=== PATIENT | male | born 1930 | race Caucasian/White ===

== ENCOUNTER → 2017-09-10 | Outpatient (CLI) | payer MEDICARE ==
[~2017-09-10] MED LIST: ARICEPT5 MG PO; ASPIRIN81 MG PO; DIGOXIN125 MCG PO; DIOVAN80 MG PO; DOXYCYCLINE HY100 MG PO; FISH OIL 1,0001 EAC2 PO; FUROSEMIDE40 MG PO; GABAPENTIN300 MG PO; GLIPIZIDE10 MG PO; MULTI-VITAMIN1 EACH PO; POTASSIUM CHLO10 ME1 PO; RAPAFLO4 MG PO; SIMVASTATIN10 MG PO; VERAPAMIL HCL80 MG PO; WARFARIN SODIU7.5 MG PO
--- NOTE | 2017-09-10 14:24 | Diagnostic Imaging Report ---
EXAMINATION: Head CT HISTORY: Status post fall, head trauma a couple of days ago, pain, forgetfulness COMPARISON: Head CT on 08/14/2015 and 12/10/2016 TECHNIQUE: Multidetector axial images were obtained without contrast from the foramen magnum to the vertex . The images were reconstructed using brain and bone algorithms. Thin section brain images were reformatted into coronal and sagittal planes. Intravenous contrast: None. Motion/streaking artifact limits the evaluation of the skull base and posterior cranial fossa. FINDINGS: Parenchyma: 1. Persistent mild chronic microvascular ischemic changes, within normal limits for age. 2. No mass or hemorrhage. No CT evidence of acute territorial vascular insult. Extra-axial spaces:No abnormal density. No extra-axial fluid collections Brain volume: Again noted generalized brain volume, within normal limits for age. Ventricles: No hydrocephalus or displacement. Arteries: No density suggestive of thrombus. Dural sinuses: No abnormal density. Extra-axial spaces: No abnormal density. Foramen magnum: No mass, Chiari malformation, or basilar invagination. Sella: No obvious mass. Paranasal/mastoid sinuses: Imaged portions unremarkable. Skull/Scalp: No lytic or blastic lesions. Right frontal scalp/soft tissue swelling/hematoma without underlying fracture.. IMPRESSION: 1. No acute post traumatic intracranial hemorrhage. 2. Right forehead soft tissue swelling/hematoma without underlying fractures. 3. Stable mild generalized brain volume loss. The findings were discussed with the attending physician's PA Grace Back at the time of the dictation. Signed by: Dr. Karolina Caceres M.D. on 09/10/2017 2:21 PM
== END ==
LOC: CT 13:07
PROVIDERS: ATTEND Family Medicine
DX: Z04.3 Encounter for examination and observation following other accident (principal); W01.0XXA Fall on same level from slipping, tripping and stumbling without subsequent striking against object, initial encounter
CPT/HCPCS: 70450

== ENCOUNTER 2017-10-18 15:45 | Emergency (ER) | payer MEDICARE ==
[~2017-10-18] VITALS: Ht 188 cm; Wt 80.3 kg
--- OUTSIDE RECORDS SUMMARY | 2017-10-18 15:49 | XMS REPORT | Clinical Summary ---
Author Author [facility] Address Unknown Phone Unavailable Care Team Providers Care Prison Librarian Name Role Phone Asked, Pcp PCP Unavailable Allergies Not on File Current Medications Not on file Active Problems Not on file Encounters Date Type Specialty Care Team Description 04/01/2017 Orders Only Radiation Oncology Radha Hopper PA-C Malignant neoplasm of prostate (Primary Dx) after 10/17/2016 Social History Tobacco Use Types Packs/Day Years Used Date Never Assessed Sex Assigned at Date Recorded Not on file Last Filed Vital Signs Not on file Plan of Treatment Health Maintenance Due Date Last Done Comments SHINGRIX VACCINE (#1) 1979 ZOSTER VACCINE 1989 PNEUMOCOCCAL 1994 POLYSACCHARIDE VACCINE AGE 65 AND OVER PNEUMOCOCCAL-13 1994 INFLUENZA VACCINE 12/25/2017 Results Not on fileafter 10/17/2016 Insurance Payer Benefit Subscriber ID Type Phone Address Plan / Group MEDICARE MEDICARE xxxxxxxxxx Medicare [place], [place] PART A AND B AARP AARP xxxxxxxxxxx [place] [address]
--- OUTSIDE RECORDS SUMMARY | 2017-10-18 15:49 | XMS REPORT ---
Author Author [facility] Address Unknown Phone Unavailable Care Team Providers Care Hot Baller Name Role Phone HEAVENLY SCOTT Unavailable Unavailable Problems This patient has no known problems. Allergies, Adverse Reactions, Alerts This patient has no known allergies or adverse reactions. Medications This patient has no known medications. Results Test Description Test Time Test Comments Text Results Atomic Results Result Comments CT BRAIN WO [place] [address] Patient Name: LUZ MCCALL MR #: [id number] : 1930 Age/Sex: 87/M Req # : [id number] Adm Physician: Ordered by: HEAVENLY SCOTT DO Report #: [id number] Location: CT Room/Bed: Procedure: [id number] CT/CT BRAIN WO Exam Date: 09/10/17 Exam Time: 1340 REPORT STATUS: Signed EXAMINATION: Head CT HISTORY: Status post fall, head trauma a couple of days ago, pain, forgetfulness COMPARISON: Head CT on 08/14/2015 and 12/10/2016 TECHNIQUE: Multidetector axial images were obtained without contrast from the foramen magnum to the vertex . The images were reconstructed using brain and bone algorithms. Thin section brain images were reformatted into coronal and sagittal planes. Intravenous contrast: None. Motion/streaking artifact limits the evaluation of the skull base and posterior cranial fossa. FINDINGS: Parenchyma: 1. Persistent mild chronic microvascular ischemic changes, within normal limits for age. 2. No mass or hemorrhage. No CT evidence of acute territorial vascular insult. Extra-axial spaces:No abnormal density. No extra-axial fluid collections Brain volume: Again noted generalized brain volume, within normal limits for age. Ventricles: No hydrocephalus or displacement. Arteries: No density suggestive of thrombus. Dural sinuses: No abnormal density. Extra-axial spaces : No abnormal density. Foramen magnum: No mass, Chiari malformation, or basilar invagination. Sella: No obvious mass. Paranasal/ mastoid sinuses: Imaged portions unremarkable. Skull/Scalp: No lytic or blastic lesions. Right frontal scalp/soft tissue swelling/hematoma without underlying fracture.. IMPRESSION: 1. No acute post traumatic intracranial hemorrhage. 2. Right forehead soft tissue swelling/hematoma without underlying fractures. 3. Stable mild generalized brain volume loss. The findings were discussed with the attending physician's PA Grace Back at the time of the dictation. Signed by: Dr. Larry Caceres M.D. on 09/10/2017 2:21 PM Dictated By: LARRY CACERES MD 1421 Transcribed By: EMILY on 09/10/17 1421 COPY TO: HEAVENLY SCOTT DO
[2017-10-18] MEDS ORDERED: SODIUM CHLORIDE FLUSH 10 ML SYR INJ PRN (16:15)
[2017-10-18] MEDS ORDERED: SODIUM CHLORIDE 0.9% 1000ML 500 ML IV SCH (16:15)
[2017-10-18 17:15] LABS: BASOPHILS % 0.3 % (0.0-1.0); EOSINOPHILS # (AUTO) 0.2 (0.0-0.4); EOSINOPHILS % 2.6 % (0.0-6.0); HEMATOCRIT 27.1 % (38.2-49.6); HEMOGLOBIN 8.6 g/dL (14.0-18.0); LYMPHOCYTES # (AUTO) 0.8 (1.0-3.2); LYMPHOCYTES % 12.6 % (18.0-39.1); MEAN CORPUSCULAR HEMOGLOBIN 26.3 pg (28-32); MEAN CORPUSCULAR HGB CONC 31.7 g/dL (31-35); MEAN CORPUSCULAR VOLUME 82.9 fL (81-99); MONOCYTES # (AUTO) 0.4 (0.2-0.8); NEUTROPHILS # (AUTO) 5.1 (2.1-6.9); NEUTROPHILS % 77.9 % (38.7-80.0); PLATELET COUNT 245 x10e3/uL (140-360); RED BLOOD COUNT 3.27 x10e6/uL (4.3-5.7)
[2017-10-18 17:25] LABS: INR 2.19; PROTHROMBIN TIME 22.9 seconds (11.9-14.5)
[2017-10-18 17:26] LABS: PARTIAL THROMBOPLASTIN TIME 41.5 seconds (23.8-35.5)
[2017-10-18 17:33] LABS: ALBUMIN 3.2 g/dL (3.5-5.0); ALBUMIN/GLOBULIN RATIO 0.8 (0.8-2.0); ANION GAP 15.6 mmol/L (8-16); CREATININE, SERUM 1.59 mg/dL (0.72-1.25); POTASSIUM 4.6 mmol/L (3.5-5.1)
[2017-10-18 17:39] LABS: DIGOXIN 0.72 ng/mL (0.8-2.0)
[2017-10-18] MEDS ORDERED: INSULIN REGULAR, HUMAN 100 UNIT/1 ML 3ML VIAL IV ONE ×2 (18:00→19:30)
[2017-10-18] MEDS ORDERED: SODIUM CHLORIDE 0.9% 1000ML 1,000 ML IV SCH (18:00)
[2017-10-18 18:24] LABS: CLARITY,URINE TURBID (CLEAR); COLOR,URINE YELLOW (YELLOW); KETONES,URINE NEGATIVE (NEGATIVE); LEUKOCYTE ESTERASE ,URINE 2+ (NEGATIVE); NITRITE,URINE NEGATIVE (NEGATIVE); PROTEIN,URINE DIPSTICK 2+ (NEGATIVE)
[2017-10-18 18:25] LABS: BILIRUBIN,URINE NEGATIVE (NEGATIVE); URINE UROBILINOGEN 0.2 mg/dL (0.2 - 1)
[2017-10-18 18:32] LABS: AMORPHOUS SEDIMENT,URINE FEW (FEW); BACTERIA,URINE MODERATE /HPF; WBC,URINE (MAN) 21-50 /HPF (0-5)
[2017-10-18] MEDS ORDERED: CEFTRIAXONE SOD 1 GM VIAL IM ONE (19:00)
[2017-10-18 21:21] VITALS: BP 145/62
== END 2017-10-18 22:32 | disposition home or self-care (01) ==
LOC: ER 15:45
DX: E11.65 Type 2 diabetes mellitus with hyperglycemia (principal); N30.90 Cystitis, unspecified without hematuria; E78.00 Pure hypercholesterolemia, unspecified; Z95.0 Presence of cardiac pacemaker
CPT/HCPCS: 36415; 80053; 80162; 81001; 82948; 83036; 85025; 85610; 85730; 87086; 87186; 93005; 99284; J0696; J7030

== ENCOUNTER 2017-10-21 12:34 | Emergency (ER) | payer MEDICARE ==
[~2017-10-21] VITALS: Ht 188 cm; Wt 80.3 kg
--- OUTSIDE RECORDS SUMMARY | 2017-10-21 12:38 | XMS REPORT | Clinical Summary ---
Author Author [facility] Address Unknown Phone Unavailable Care Team Providers Care Waiter/Waitress Head Name Role Phone Asked, Pcp PCP Unavailable Allergies Not on File Current Medications Not on file Active Problems Not on file Encounters Date Type Specialty Care Team Description 04/01/2017 Orders Only Radiation Oncology Radha Hopper PA-C Malignant neoplasm of prostate (Primary Dx) after 10/20/2016 Social History Tobacco Use Types Packs/Day Years Used Date Never Assessed Sex Assigned at Date Recorded Not on file Last Filed Vital Signs Not on file Plan of Treatment Health Maintenance Due Date Last Done Comments SHINGRIX VACCINE (#1) 1979 ZOSTER VACCINE 1989 PNEUMOCOCCAL 1994 POLYSACCHARIDE VACCINE AGE 65 AND OVER PNEUMOCOCCAL-13 1994 INFLUENZA VACCINE 12/25/2017 Results Not on fileafter 10/20/2016 Insurance Payer Benefit Subscriber ID Type Phone Address Plan / Group MEDICARE MEDICARE xxxxxxxxxx Medicare [place], [place] PART A AND B AARP AARP xxxxxxxxxxx [place] [address]
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
[2017-10-21] MEDS ORDERED: MORPHINE SULFATE 2 MG/ML SYR IV STA (14:04)
[2017-10-21] MEDS ORDERED: SODIUM CHLORIDE 0.9% 1000ML 1,000 ML IV STA ×2 (14:04→16:41)
[2017-10-21] MEDS ORDERED: ASPIRIN 81 MG CHEW TAB PO ONE (14:15)
[2017-10-21] MEDS ORDERED: ONDANSETRON HCL 4 MG ORAL DISINTEGRATING TAB PO ONE (14:15)
[2017-10-21 15:56] LABS: BASOPHILS % 0.3 % (0.0-1.0); EOSINOPHILS # (AUTO) 0.2 (0.0-0.4); EOSINOPHILS % 3.1 % (0.0-6.0); HEMATOCRIT 27.8 % (38.2-49.6); LYMPHOCYTES # (AUTO) 0.9 (1.0-3.2); LYMPHOCYTES % 11.8 % (18.0-39.1); MEAN CORPUSCULAR HEMOGLOBIN 26.7 pg (28-32); MEAN CORPUSCULAR HGB CONC 32.4 g/dL (31-35); MEAN CORPUSCULAR VOLUME 82.5 fL (81-99); MONOCYTES # (AUTO) 0.4 (0.2-0.8); MONOCYTES % 4.9 % (4.4-11.3); NEUTROPHILS # (AUTO) 5.7 (2.1-6.9); NEUTROPHILS % 79.5 % (38.7-80.0); PLATELET COUNT 266 x10e3/uL (140-360); RED BLOOD COUNT 3.37 x10e6/uL (4.3-5.7); RED CELL DISTRIBUTION WIDTH 14.4 % (11.7-14.4)
[2017-10-21 16:05] LABS: INR 2.03; PROTHROMBIN TIME 21.6 seconds (11.9-14.5)
[2017-10-21 16:06] LABS: PARTIAL THROMBOPLASTIN TIME 37.8 seconds (23.8-35.5)
[2017-10-21 16:13] LABS: ALBUMIN 3.2 g/dL (3.5-5.0); ALBUMIN/GLOBULIN RATIO 0.7 (0.8-2.0); ANION GAP 14.7 mmol/L (8-16); CALCIUM 10.2 mg/dL (8.4-10.2); CREATININE, SERUM 1.31 mg/dL (0.72-1.25); POTASSIUM 4.7 mmol/L (3.5-5.1)
[2017-10-21 16:14] LABS: CLARITY,URINE CLOUDY (CLEAR); COLOR,URINE YELLOW (YELLOW); KETONES,URINE NEGATIVE (NEGATIVE); LEUKOCYTE ESTERASE ,URINE 2+ (NEGATIVE); NITRITE,URINE NEGATIVE (NEGATIVE); PROTEIN,URINE DIPSTICK NEGATIVE (NEGATIVE)
[2017-10-21 16:15] LABS: BILIRUBIN,URINE NEGATIVE (NEGATIVE); URINE UROBILINOGEN 0.2 mg/dL (0.2 - 1)
[2017-10-21 16:20] LABS: CREATINE KINASE MB 2.4 ng/mL (0-5.0)
[2017-10-21 16:27] LABS: WBC,URINE (MAN) >50 /HPF (0-5)
[2017-10-21 16:28] LABS: BACTERIA,URINE FEW /HPF; MUCUS,URINE RARE (RARE)
[2017-10-21] MEDS ORDERED: INSULIN LISPRO 100 UNIT/1 ML 3ML VIAL SQ STA (16:41)
[2017-10-21] MEDS ORDERED: CEFTRIAXONE SOD 1 GM VIAL IV ONE (16:45)
[2017-10-21 19:31] VITALS: BP 123/75
== END 2017-10-21 19:43 | disposition home or self-care (01) ==
LOC: ER 12:34
DX: E11.65 Type 2 diabetes mellitus with hyperglycemia (principal); N30.90 Cystitis, unspecified without hematuria; E78.5 Hyperlipidemia, unspecified; E11.42 Type 2 diabetes mellitus with diabetic polyneuropathy; Z79.84 Long term (current) use of oral hypoglycemic drugs; Z95.0 Presence of cardiac pacemaker; Z79.01 Long term (current) use of anticoagulants; Z79.82 Long term (current) use of aspirin
CPT/HCPCS: 93005; 99284; J0696; J7030

== ENCOUNTER 2018-09-20 16:40 | Inpatient (IN) | payer MEDICARE ==
[~2018-09-20] VITALS: Ht 188 cm; Wt 79.0 kg
--- OUTSIDE RECORDS SUMMARY | 2018-09-20 16:44 | XMS REPORT | Clinical Summary ---
Author Author [facility] Address Unknown Phone Unavailable Care Team Providers Care Labeler Name Role Phone Asked, No Pcp PCP Unavailable Allergies Not on File Medications Not on file Active Problems Not on file Social History Date Tobacco Use Types Packs/Day Years Used Never Assessed Sex Assigned at Date Recorded Not on file Industry Job Start Date Occupation Not on file Not on file Not on file Travel End Travel History Travel Start No recent travel history available. Last Filed Vital Signs Not on file Plan of Treatment Health Maintenance Due Date Last Done Comments SHINGLES VACCINES (#1) 1979 65+ PNEUMOCOCCAL VACCINE 1994 (1 of 2 - PCV13) PNEUMOCOCCAL 1994 POLYSACCHARIDE VACCINE AGE 65 AND OVER INFLUENZA VACCINE 12/25/2018 Results Not on fileafter 09/19/2017 Insurance Payer Benefit Subscriber ID Type Phone Address Plan / Group MEDICARE MEDICARE xxxxxxxxxx Medicare [place], [place] PART A AND B AARP AARP xxxxxxxxxxx Commercial SUPPLEMENT (Home) [place] [address] Advance Directives Patient has advance care planning documents on file. For more information, crispin onofre contact: Brain Newman [address] [place] [address]
--- NOTE | 2018-09-20 17:49 | Diagnostic Imaging Report ---
ADDENDUM #1 Agree with preliminary report. Signed by: DR Earnest Franks M.D. on 09/20/2018 6:41 PM ORIGINAL REPORT Exam: Noncontrast head and cervical spine CT History: 88-year-old male, status post fall, altered mental status Comparison studies: Head CT dated 09/10/2017 Technique: Axial images were obtained from the brain and cervical spine. Coronal and sagittal images reconstructed from the axial data. Dose modulation, iterative reconstruction, and/or weight based adjustment of the mA/kV was utilized to reduce the radiation dose to as low as reasonably achievable. Intravenous contrast: None Findings: Head CT: Scalp/skull: There is a small area of scalp swelling over the left frontal scalp.. No fractures, blastic or lytic lesions. Brain sulci: Mildly prominent. Ventricles: Mildly prominent. No hydrocephalus. Extra-axial spaces: No masses. No fluid collections. Parenchyma: Mild scattered white matter hypodensities which are nonspecific, however likely represents sequela microvascular ischemic angiopathy. No masses, hemorrhage, acute or chronic cortical vascular insults. Sellar/suprasellar region: No abnormalities. Craniocervical junction: Patent foramen magnum. No Chiari one malformation. Cervical spine CT: Airway: Patent. Fractures: None. Soft tissues: No gross abnormalities. Atlantoaxial articulation: Intact. Alignment: Normal lordosis. No scoliosis. Cervicomedullary junction: No abnormalities. Patent foramen magnum. Vertebrae: No infection or neoplasm. 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 There is severe right-sided C3-4 foraminal stenosis due to uncovertebral arthrosis. There are multilevel symmetric disc bulges throughout the cervical spine the results in mild central canal stenosis at C4-5, C5-6, and C6-7. There are no aggressive osseous lesions. Incidental findings: Visualized lung apices are clear.. IMPRESSION: Head CT: Small area of scalp swelling over the left frontal scalp. No acute intracranial abnormalities. Chronic findings: 1. Mild white matter microvascular ischemic changes. 2. Mild generalized volume loss. Cervical spine CT: 1. No abnormalities. 2. Cannot adequately evaluate for ligament, spinal cord and or vascular abnormalities. Signed by: Tru Dean MD on 09/20/2018 5:46 PM
[2018-09-20] MEDS ORDERED: HYDROMORPHONE 2MG/ML 2 MG/ML ML IV ONE (18:30)
--- NOTE | 2018-09-20 18:32 | Diagnostic Imaging Report ---
BILATERAL HIPS X-RAY - 6 VIEWS HISTORY: ^s/p fall ^Y COMPARISON: None available. FINDINGS: Bones: Suboptimal evaluation of the proximal right femur due to unable to obtain films in external rotation. There appears to be an acute mildly displaced fracture of the left femoral neck. Additional lucent line in the inferior aspect of the left femoral head may represent an additional fracture. Right hip is suboptimally evaluated but no acute fractures are visualized. Joints: Moderate degenerative changes of both sacroiliac and acetabular femoral joints. Soft tissues: The soft tissues appear unremarkable. IMPRESSION: Highly suspected acute left femoral neck fracture. Additional lucent line in the inferior aspect of the left femoral head may represent an additional fracture. Right femur no well evaluated but no displaced fracture on limited evaluation. Recommend repeat if clinical concern. Signed by: Dr. Amna Easley M.D. on 09/20/2018 6:29 PM
--- NOTE | 2018-09-20 18:43 | Diagnostic Imaging Report ---
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 Tortuous thoracic aorta. 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 LUNGS: Lungs are well inflated. Bibasilar atelectasis. Central pulmonary vascular congestion. PLEURA: No pleural effusion or pneumothorax. HEART AND MEDIASTINUM: Mild enlargement of the cardiac silhouette. BONES AND SOFT TISSUES: No acute osseous lesion. Soft tissues are unremarkable. UPPER ABDOMEN: No free air under the diaphragm. IMPRESSION: Mild enlargement of the cardiac silhouette with associated central pulmonary vascular congestion. Metallic device which appears to represent a razor of indeterminate location in the right suprahilar region. Currently with physical exam, otherwise, recommend lateral view for better localization. Signed by: Dr. Amna Easley M.D. on 09/20/2018 6:39 PM
[2018-09-20 19:30] LABS: BASOPHILS % 0.2 % (0.0-1.0); EOSINOPHILS # (AUTO) 0.1 (0.0-0.4); EOSINOPHILS % 2.3 % (0.0-6.0); HEMATOCRIT 30.6 % (38.2-49.6); HEMOGLOBIN 10.3 g/dL (14.0-18.0); LYMPHOCYTES # (AUTO) 0.8 (1.0-3.2); LYMPHOCYTES % 13.4 % (18.0-39.1); MEAN CORPUSCULAR HEMOGLOBIN 29.9 pg (28-32); MEAN CORPUSCULAR HGB CONC 33.7 g/dL (31-35); MEAN CORPUSCULAR VOLUME 88.7 fL (81-99); MONOCYTES # (AUTO) 0.3 (0.2-0.8); MONOCYTES % 5.5 % (4.4-11.3); NEUTROPHILS # (AUTO) 4.8 (2.1-6.9); NEUTROPHILS % 77.5 % (38.7-80.0); PLATELET COUNT 163 x10e3/uL (140-360); RED BLOOD COUNT 3.45 x10e6/uL (4.3-5.7); RED CELL DISTRIBUTION WIDTH 13.8 % (11.7-14.4)
[2018-09-20 19:32] LABS: BILIRUBIN,URINE NEGATIVE (NEGATIVE); CLARITY,URINE CLEAR (CLEAR); COLOR,URINE YELLOW (YELLOW); KETONES,URINE NEGATIVE (NEGATIVE); LEUKOCYTE ESTERASE ,URINE NEGATIVE (NEGATIVE); NITRITE,URINE NEGATIVE (NEGATIVE); PROTEIN,URINE DIPSTICK NEGATIVE (NEGATIVE); URINE UROBILINOGEN 0.2 mg/dL (0.2 - 1)
[2018-09-20 19:43] LABS: BACTERIA,URINE FEW /HPF; EPITHELIAL CELLS,URINE FEW /LPF; MUCUS,URINE FEW (RARE); WBC,URINE (MAN) 0-5 /HPF (0-5)
[2018-09-20 19:46] LABS: ALANINE AMINOTRANSFERASE 21 IU/L (0-55); ALBUMIN 3.1 g/dL (3.5-5.0); ALBUMIN/GLOBULIN RATIO 0.9 (0.8-2.0); ALKALINE PHOSPHATASE 59 IU/L (40-150); ANION GAP 13.9 mmol/L (8-16); BLOOD UREA NITROGEN 23 mg/dL (7-26); BUN/CREATININE RATIO 22 (6-25); CALCIUM 9.2 mg/dL (8.4-10.2); CARBON DIOXIDE 27 mmol/L (22-29); CHLORIDE 105 mmol/L (98-107); CREATININE, SERUM 1.06 mg/dL (0.72-1.25); EST GLOMERULAR FILTRATION RATE > 60 ML/MIN (60-); GLUCOSE 157 mg/dL (74-118); INR 1.76; POTASSIUM 3.9 mmol/L (3.5-5.1); PROTHROMBIN TIME 21.2 seconds (11.9-14.5); SODIUM 142 mmol/L (136-145)
[2018-09-20 19:47] LABS: PARTIAL THROMBOPLASTIN TIME 37.1 seconds (23.8-35.5)
[2018-09-20 20:00] VITALS: BP 157/71
[2018-09-20] MEDS ORDERED: HYDROMORPHONE 1MG/1ML INJ IV PRN (20:00)
[2018-09-20] MEDS ORDERED: DEXTROSE 50% SYRINGE 50 ML IV PRN (20:00)
--- OUTSIDE RECORDS SUMMARY | 2018-09-20 20:04 | XMS REPORT | Clinical Summary ---
Author Author [facility] Address Unknown Phone Unavailable Care Team Providers Care Organic Search Lead Name Role Phone Asked, No Pcp PCP [...] Plan / Group MEDICARE MEDICARE xxxxxxxxxx Medicare [place], [place] PART A AND B AARP AARP xxxxxxxxxxx Commercial SUPPLEMENT (Home) [place] [address] Advance Directives Patient has advance care planning documents on file. For more information, crispin onofre contact: Brain Newman [address] [place] [address]
[2018-09-20] MEDS: HYDROMORPHONE 2MG/ML 2 MG/ML ML IV PRN (22:10)
[2018-09-20] MEDS: INSULIN REGULAR, HUMAN 100 UNIT/1 ML 3ML VIAL SQ SCH (22:10)
[2018-09-20] MEDS: ONDANSETRON HCL INJ 2MG/ML 2ML 2 MG/ML VIAL IV PRN (22:10)
[2018-09-20 22:30] VITALS: BP 157/71
--- NOTE | 2018-09-20 22:43 | NUR ---
PATIENT RECEIVED FROM THE EMERGENCY DEPARTMENT PER STRETCHER AT 2122. HE'S ALERT AND ORIENTED X3, NO RESPIRATORY DISTRESS OBSERVED. MULTIPLE BRUISES TO THE ARMS, SMALL SKIN TEAR OBSERVED TO THE LEFT ELBOW. 3+ PITTING EDEMA TO THE LEGS AND ANKLES, PATIENT C/O PAIN TO THE LEFT LEG WITH PAIN SCORE #8. MEDICATED WITH DILAUDID AND ZOFRAN ORDERED. LOPEZ'S TRACTION APPLIED TO THE LEFT LEG ONCE PATIENT VOICED RELIEF OF PAIN TO THE LEFT LEG. CALL LIGHT WITHIN EASY REACH, BED ALARM ON.
[2018-09-21] VITALS (7 sets, daily range): BP systolic 142–183; BP diastolic 72–86
--- NOTE | 2018-09-21 02:01 | NUR ---
PATIENT IS ASLEEP, HE'S EASY TO AROUSE. OXYGEN SATURATION ON ROOM AIR 989-90%, OXYGEN AT 2L/NC APPLIED WITH SATURATION NOW 96%HE DENIES PAIN, BED ALARM ON, CALL LIGHT WITHIN EASY REACH.
[2018-09-21] MEDS: HYDROMORPHONE 2MG/ML 2 MG/ML ML IV PRN ×2 (05:19→12:01)
[2018-09-21] MEDS: ONDANSETRON HCL INJ 2MG/ML 2ML 2 MG/ML VIAL IV PRN (05:19)
--- NOTE | 2018-09-21 05:20 | NUR ---
PATIENT C/O PAIN TO THE LEFT LEG WITH PAIN SCORE #8, MEDICATED WITH DILAUDID AND ZOFRAN ORDERED. NO RESPIRATORY DISTRESS OBSERVED, BED ALARM ON AND CALL LIGHT WITHIN EASY REACH.
[2018-09-21 06:16] LABS: BASOPHILS % 0.2 % (0.0-1.0); EOSINOPHILS # (AUTO) 0.2 (0.0-0.4); EOSINOPHILS % 2.3 % (0.0-6.0); HEMATOCRIT 29.7 % (38.2-49.6); HEMOGLOBIN 9.5 g/dL (14.0-18.0); LYMPHOCYTES # (AUTO) 0.6 (1.0-3.2); LYMPHOCYTES % 6.3 % (18.0-39.1); MEAN CORPUSCULAR HEMOGLOBIN 28.4 pg (28-32); MEAN CORPUSCULAR VOLUME 88.9 fL (81-99); MONOCYTES # (AUTO) 0.4 (0.2-0.8); MONOCYTES % 4.5 % (4.4-11.3); NEUTROPHILS % 86.2 % (38.7-80.0); PLATELET COUNT 128 x10e3/uL (140-360); RED BLOOD COUNT 3.34 x10e6/uL (4.3-5.7); RED CELL DISTRIBUTION WIDTH 13.5 % (11.7-14.4)
[2018-09-21 06:39] LABS: ALANINE AMINOTRANSFERASE 87 IU/L (0-55); ALBUMIN 2.9 g/dL (3.5-5.0); ALBUMIN/GLOBULIN RATIO 0.9 (0.8-2.0); ALKALINE PHOSPHATASE 81 IU/L (40-150); BLOOD UREA NITROGEN 19 mg/dL (7-26); BUN/CREATININE RATIO 21 (6-25); CARBON DIOXIDE 29 mmol/L (22-29); CHLORIDE 105 mmol/L (98-107); CREATININE, SERUM 0.89 mg/dL (0.72-1.25); EST GLOMERULAR FILTRATION RATE > 60 ML/MIN (60-); GLUCOSE 138 mg/dL (74-118); SODIUM 142 mmol/L (136-145)
[2018-09-21] MEDS: INSULIN REGULAR, HUMAN 100 UNIT/1 ML 3ML VIAL SQ SCH ×4 (07:30→21:00)
[2018-09-21] MEDS ORDERED: COUMADIN3 MG PO (10:10)
[2018-09-21] MEDS ORDERED: GLIPIZIDE5 MG PO (10:16)
[2018-09-21] MEDS ORDERED: FLOMAX0.4 MG PO (10:17)
[2018-09-21] MEDS ORDERED: IRON160 M1 PO (10:18)
[2018-09-21] MEDS ORDERED: [UNRECOGNIZED DRUG - OTHER] SC (10:19)
--- NOTE | 2018-09-21 11:02 | NUR ---
Call to Dr. Stephens's service for cardiac clearance consult and waiting for call back.
[2018-09-21] MEDS ORDERED: ONDANSETRON HCL 4 MG ORAL DISINTEGRATING TAB PO PRN (11:45)
--- NOTE | 2018-09-21 12:46 | NUR ---
Dr. Stephens not available to see patient and consult for cardiac clearance to Dr. Tanner and he is seeing patient at this time
--- NOTE | 2018-09-21 13:09 | History and Physical ---
CHIEF COMPLAINT: Hip pain. HISTORY OF PRESENT ILLNESS: This is an 88-year-old white man, who suffered a mechanical fall on Thursday, September 20, 2018, that resulted in left femoral neck fracture. The patient states he cannot quite remember falling, but he does not think he lost consciousness. This gentleman also suffered fyhd-dm-imwpejaq vascular dementia. Family states he has been very unsteady on his feet for the last year. He usually ambulates with a cane or walker. In the emergency room, the patient had chest x-ray performed, which did reveal bibasilar atelectasis as well as enlarged cardiac silhouette with mild central pulmonary vascular congestion. The patient's blood work on admission was unremarkable except today his AST and ALT are elevated at 108 and 87 respectively. A 12-lead EKG performed in the emergency room revealed paced rhythm. REVIEW OF SYSTEMS: GENERAL: Weight is stable according to members. His dementia has worsened over the last year. He is also very unsteady when he ambulates. No fever or chills. HEENT: No headaches. No vision changes. CARDIOVASCULAR/RESPIRATORY: No complaints of any chest pain or shortness of breath. No complaints of palpitations or lightheadedness. GI: No nausea, vomiting, diarrhea, or constipation. : He does have benign prostatic hypertrophy. Denies any UTIs. NEUROMUSCULAR: Does complain of left hip discomfort. He is very unsteady when he ambulates as previous stated. PAST MEDICAL HISTORY: 1. Paroxysmal atrial fibrillation. 2. Systolic congestive heart failure. 3. Hypertensive heart disease. 4. Type 2 diabetes mellitus. 5. Hyperlipidemia. 6. Yjcp-wk-hckavuix vascular dementia. 7. Benign prostatic hypertrophy. PAST SURGICAL HISTORY: 1. Permanent pacemaker placement. 2. Cholecystectomy. 3. Hernia repair. 4. Hemorrhoidectomy. 5. Lumbar spine surgery. FAMILY HISTORY: Noncontributory. SOCIAL HISTORY: He is , lives with his . No history of tobacco or alcohol use. He has adult children, they are very much involved in his health care needs. ALLERGIES: NO KNOWN DRUG ALLERGIES. MEDICATIONS: 1. Aspirin 81 mg daily. 2. Digoxin 125 mcg daily. 3. Donepezil 10 mg at bedtime. 4. Ferrous sulfate 160 mg daily. 5. Furosemide 40 mg b.i.d. 6. Gabapentin 10 mg b.i.d. 7. Glipizide 10 mg in the morning and 5 mg at night. 8. Multivitamin daily. 9. Essex-3 fish oil 4000 mg daily. 10. Potassium chloride 10 mEq daily. 11. Simvastatin 10 mg at bedtime. 12. Tamsulosin 0.4 daily. 13. Valsartan 40 mg daily. 14. Verapamil 80 mg t.i.d. 15. Warfarin 7.5 mg alternating with 3.25 mg every other day. 16. Toujeo 10 units subcutaneous daily. PHYSICAL EXAMINATION: GENERAL: He is awake and alert. He does get confused easily. His adult children and are at bedside, who provided all the history. He does not appear to be in distress. VITAL SIGNS: Height 6 feet 2 inches, weight 138 pounds, and BMI is 22. Blood pressure is 140/80, pulse 84, respirations 16, temperature 97.5, and oxygen saturation 99% on room air. SKIN: Warm and dry. Slight pallor. No jaundice or diaphoresis. HEENT: Anicteric sclerae with moist mucous membranes. NECK: Supple. CARDIOVASCULAR: Distant heart sounds. Regular rate and rhythm with an S3 gallop. LUNGS: No rales. No rhonchi or wheezes. ABDOMEN: Benign. EXTREMITIES: No edema or deformity. His left lower extremity is in Crisostomo's traction. NEUROLOGIC: Intact. No gross focal deficits appreciated. DIAGNOSES: 1. Left femoral neck fracture secondary to mechanical fall. 2. Oldb-tk-wdyyinms dementia. 3. Chronic systolic congestive heart failure. 4. Hypertensive heart disease. 5. Elevated hepatic transaminases. 6. Paroxysmal atrial fibrillation. PLAN: 1. We will hold warfarin and aspirin therapy. 2. We will check prothrombin time and INR level daily. 3. We will check creatine kinase level to assess for rhabdomyolysis. 4. Check B-type natriuretic peptide level to assess for intravascular volume overload. 5. Order 2D echocardiogram to assess patient's left ventricular ejection fraction. 6. Consult Cardiology. 7. Blood glucose and blood pressure monitoring and control. 8. Informed the family that sulfonylureas can cause severe symptomatic hypoglycemia, but family insists that this medication has controlled his glucose levels. 9. Gentle adequate pain control. 10. We will hold simvastatin since he has elevated hepatic transaminases. I spent 50 minutes in the care of patient. MD TRENTON Garcia/SHIVA /[id number]
--- NOTE | 2018-09-21 13:18 | NUR ---
Patient alert and responsive, cleared by cardiac for surgery, being seen by ortho at this time and will monitor
[2018-09-21 13:44] LABS: INR 1.52; PROTHROMBIN TIME 18.9 seconds (11.9-14.5)
--- NOTE | 2018-09-21 14:00 | NUR ---
Elevated BP notes and r/t pain as rechecked and BP 160/78
[2018-09-21] MEDS: VERAPAMIL HCL 80 MG TAB PO SCH ×2 (16:02→22:18)
[2018-09-21] MEDS: FUROSEMIDE 40 MG TAB PO SCH (17:03)
[2018-09-21] MEDS: GABAPENTIN 300 MG CAP PO SCH (17:03)
--- NOTE | 2018-09-21 19:30 | Consultation ---
DATE OF CONSULTATION: 09/21/2018 Cardiovascular consultation ADDITIONAL ATTENDING PHYSICIAN: Norman Hammer MD. Thank you so much for asking us to see this nice man again in consultation. Mr. Valdovinos is a pleasant, elderly, demented 88-year-old man, who was admitted through the emergency room on the with a complaint of fell down and fractured his hip. HISTORY OF PRESENT ILLNESS: Evidently, the patient was at home with his . Apparently, he got up from having a cup of coffee with his , walking to the bathroom and fell down and fractured his left hip. History of present illness is not further available as the patient is both demented and having been given narcotics for pain. PAST MEDICAL HISTORY: Long and complex with chronic atrial fibrillation, ventricular pacemaker, sleep apnea, history of hypertension, history of prostate cancer and skin cancer. He also apparently had pericarditis in the past, West Nile virus. MEDICATIONS: His home medical regimen recently included furosemide 40 mg twice a day, gabapentin 300 mg twice a day, potassium 10 mEq daily, glipizide 10 mg twice a day, aspirin 81 mg daily, multivitamin, fish oil, digoxin 0.125 mg every other day, donepezil 10 mg once a day, tamsulosin 0.4 mg daily, iron tablet, verapamil HCL 80 mg 3 times a day, warfarin 7.5 mg tablet one tablet on Saturday, Saturday, Saturday, 1.5 tablets on Saturday, Saturday, and Saturday, 1 tablet on , although the family tells me his INR was recently elevated and withheld warfarin for some days. Also, takes Toujeo SoloStar 10 units daily, losartan 25 mg daily. Recent echocardiogram showed gior-yr-rxfhvrph mitral regurgitation. Recent echocardiogram performed on July 11, 2018, showed an EF of 40-45%, apical septal hypokinesis, mild mitral regurgitation. Aortic root 3.9 cm, right ventricular systolic pressure estimated 52 mmHg. X-ray of the hip shows a left femoral fracture. ASSESSMENT: 1. Femoral fracture. 2. Chronic atrial fibrillation. 3. Pacemaker function intact. 4. Anemia. 5. Dementia. Apparently, anemia has been followed by Dr. Tate withholding warfarin. Cardiovascular status stable for surgery. Thank you for asking me to see him in consultation. MD STANISLAV Pérez/SHIVA /[id number] cc: DO Wilian No MD Edward B Roberts, MD
--- NOTE | 2018-09-21 20:20 | NUR ---
OLPEZ'S TRACTION INTACT TO THE LEFT LEG, SKIN ASSESSED AND NO PROBLEMS OBSERVED. PATIENT REPOSITION IN BED FOR COMFORT, HE'S MOSTLY ASLEEP BUT EASY TO AROUSE. CALL LIGHT IN EASY REACH, HIS IS AT THE BEDSIDE.
[2018-09-21] MEDS: DONEPEZIL HCL 5 MG TAB PO SCH (22:17)
[2018-09-21] MEDS: GLIPIZIDE 5 MG TAB PO SCH (22:18)
--- NOTE | 2018-09-21 23:38 | NUR ---
PATIENT IS MOSTLY ASLEEP, HE'S EASY TO AROUSE. HE DENIES PAIN TO THE LEFT LEG, DIABETIC SNACK GIVEN.
[2018-09-22] VITALS (7 sets, daily range): BP systolic 126–176; BP diastolic 68–84
[2018-09-22] MEDS: HYDROMORPHONE 2MG/ML 2 MG/ML ML IV PRN ×4 (04:05→21:37)
--- NOTE | 2018-09-22 04:05 | NUR ---
PATIENT REPOSITION IN BED, HE C/O SEVERE PAIN TO THE LEFT LEG. MEDICATED WITH DILAUDID ORDERED, BED ALARM ON AND CALL LIGHT WITHIN EASY REACH.
[2018-09-22 06:32] LABS: BASOPHILS % 0.3 % (0.0-1.0); EOSINOPHILS # (AUTO) 0.3 (0.0-0.4); EOSINOPHILS % 3.8 % (0.0-6.0); HEMOGLOBIN 10.4 g/dL (14.0-18.0); LYMPHOCYTES # (AUTO) 0.7 (1.0-3.2); LYMPHOCYTES % 8.4 % (18.0-39.1); MEAN CORPUSCULAR HEMOGLOBIN 28.8 pg (28-32); MEAN CORPUSCULAR HGB CONC 32.5 g/dL (31-35); MEAN CORPUSCULAR VOLUME 88.6 fL (81-99); MONOCYTES # (AUTO) 0.6 (0.2-0.8); MONOCYTES % 6.9 % (4.4-11.3); NEUTROPHILS # (AUTO) 7.1 (2.1-6.9); NEUTROPHILS % 80.3 % (38.7-80.0); PLATELET COUNT 140 x10e3/uL (140-360); RED BLOOD COUNT 3.61 x10e6/uL (4.3-5.7); RED CELL DISTRIBUTION WIDTH 13.6 % (11.7-14.4)
[2018-09-22 06:47] LABS: INR 1.41; PROTHROMBIN TIME 17.8 seconds (11.9-14.5)
[2018-09-22 07:06] LABS: ALANINE AMINOTRANSFERASE 65 IU/L (0-55); ALBUMIN 2.9 g/dL (3.5-5.0); ALBUMIN/GLOBULIN RATIO 0.8 (0.8-2.0); ALKALINE PHOSPHATASE 77 IU/L (40-150); ANION GAP 10.8 mmol/L (8-16); BLOOD UREA NITROGEN 16 mg/dL (7-26); BUN/CREATININE RATIO 19 (6-25); CALCIUM 9.5 mg/dL (8.4-10.2); CARBON DIOXIDE 32 mmol/L (22-29); CHLORIDE 102 mmol/L (98-107); CREATININE, SERUM 0.84 mg/dL (0.72-1.25); EST GLOMERULAR FILTRATION RATE > 60 ML/MIN (60-); GLUCOSE 141 mg/dL (74-118); POTASSIUM 3.8 mmol/L (3.5-5.1); SODIUM 141 mmol/L (136-145)
[2018-09-22] MEDS: INSULIN REGULAR, HUMAN 100 UNIT/1 ML 3ML VIAL SQ SCH ×4 (07:30→21:00)
[2018-09-22] MEDS ORDERED: ASPIRIN 81 MG CHEW TAB PO SCH (09:00)
[2018-09-22] MEDS ORDERED: VALSARTAN 80 MG TAB PO SCH (09:00)
[2018-09-22] MEDS: TOUJEO SC SCH (09:00)
[2018-09-22] MEDS: GABAPENTIN 300 MG CAP PO SCH ×2 (09:15→17:51)
[2018-09-22] MEDS: GLIPIZIDE 5 MG TAB PO SCH ×2 (09:15→21:37)
[2018-09-22] MEDS: FERROUS SULFATE 325 MG TAB PO SCH (09:15)
[2018-09-22] MEDS: DIGOXIN 0.125 MG TAB PO SCH (09:15)
[2018-09-22] MEDS: FUROSEMIDE 40 MG TAB PO SCH ×2 (09:15→17:51)
[2018-09-22] MEDS: LOSARTAN POTASSIUM 25 MG TAB PO SCH (09:15)
[2018-09-22] MEDS: VERAPAMIL HCL 80 MG TAB PO SCH ×3 (09:15→21:37)
[2018-09-22] MEDS: POTASSIUM CHLORIDE 10MEQ EA PO SCH (09:15)
[2018-09-22] MEDS: TAMSULOSIN HCL 0.4 MG CAP PO SCH (09:15)
--- NOTE | 2018-09-22 12:54 | NUR ---
CASE MANAGEMENT ASSESSMENT Senior Developer to bedside to discuss plan of care with patient/family. CM/SW role and care transitions discussed. Anticipated discharge plan discussed along with duration of care. CM/SW discussed patients right to make decisions in care. CM/SW work hours given. Spoke with pt's daughter Emelina at bedside. Patient lives: with Sri Admit/Transfer: thru ED Hospital/ER visits since last admit: 0 POA/Emergency contact: 1. Sri Valdovinos [phone], 2. daughter Emelina Rehman [phone] Current/Previous Home Health: had home health previously, but none currently. daughter cannot remember the name of the company PCP/Follow-up Care: Dr. Amaya Current/Previous DME: cane, rollator Medications (referring to index hospitalization or the first time you were in the hospital) a. Were changes made in your medications when you were in the hospital on [date of index hospitalization]? n/a b. Did you understand the changes? n/a c. Were you able to obtain your new medications right away? n/a d. Were you able to take your medications like the doctor wanted you to? n/a e. Did the hospital give you an accurate, easy to understand list of medications when you left? n/a Scale of 1-10 how comfortable does patient feel with disease management in outpatient settin Other Services: none Employment Status: retired Areas of Concerns: fall, weakness, dementia Referral Needs: inpatient rehab vs snf after surgery Education Needs: safety, post op instructions after pt has surgery IMM/LOZA given and signed (if applicable): none at this time Goal for discharge: snf vs inpatient rehab. daughter states that she has been trying to get her parents to come live with her, but they have resisted. She stated it may be close to time to put her dad in extermination supervisor care. She would like for him to go to rehab on discharge. CM provided pt's daughter with Senior Resource Guide and pointed out different facilities. She will check some facilities out and let CM know once they have a choice. CM/SW left business card at the bedside with contact information. Name and number was also written on the patients whiteboard. Patient verbalized understanding of discussion. CM will follow-up with ongoing discharge and transition of care needs.
[2018-09-22] MEDS: DONEPEZIL HCL 5 MG TAB PO SCH (21:37)
--- NOTE | 2018-09-22 21:38 | NUR ---
PATIENT C/O PAIN TO THE LEFT LEG, MEDICATED WITH DILAUDID ORDERED. LOPEZ'S TRACTION REMAINS ON THE LEFT LEG, BED ALARM ON AND CALL LIGHT WITHIN EASY REACH.
[2018-09-23] VITALS (8 sets, daily range): BP systolic 126–176; BP diastolic 56–80
--- NOTE | 2018-09-23 00:44 | NUR ---
PATIENT IS SOUNDLY ASLEEP, NO RESPIRATORY DISTRESS OBSERVED. HE'S EASY TO AROUSE, BED ALARM ON AND CALL LIGHT WITHIN EASY REACH.
--- NOTE | 2018-09-23 03:27 | NUR ---
PATIENT LYING IN BED AWAKE, NO RESPIRATORY DISTRESS OBSERVED. HE DENIES PAIN TO THE LEFT LEG, BED ALARM ON AND CALL LIGHT WITHIN EASY REACH.
[2018-09-23] MEDS: HYDROMORPHONE 2MG/ML 2 MG/ML ML IV PRN ×3 (04:52→18:37)
--- NOTE | 2018-09-23 04:56 | NUR ---
PATIENT C/O PAIN TO THE LEFT LEG, MEDICATED WITH DILAUDID ORDERED. HE'S TO HAVE A COMPLETE BED BATH, STAFF EDUCATED TO WAIT ABOUT HALF AN HOUR BEFORE PROVIDING THE BATH.
[2018-09-23 07:13] LABS: INR 1.25; PROTHROMBIN TIME 16.3 seconds (11.9-14.5)
[2018-09-23] MEDS: VERAPAMIL HCL 80 MG TAB PO SCH ×3 (09:58→22:08)
[2018-09-23] MEDS: DIGOXIN 0.125 MG TAB PO SCH (09:58)
[2018-09-23] MEDS: LOSARTAN POTASSIUM 25 MG TAB PO SCH (09:58)
[2018-09-23] MEDS: POTASSIUM CHLORIDE 10MEQ EA PO SCH (09:58)
[2018-09-23] MEDS: FERROUS SULFATE 325 MG TAB PO SCH (09:58)
[2018-09-23] MEDS: TAMSULOSIN HCL 0.4 MG CAP PO SCH (09:58)
[2018-09-23] MEDS: GABAPENTIN 300 MG CAP PO SCH ×2 (09:58→17:30)
[2018-09-23] MEDS: FUROSEMIDE 40 MG TAB PO SCH ×2 (09:58→17:30)
[2018-09-23] MEDS: GLIPIZIDE 5 MG TAB PO SCH ×2 (09:58→22:08)
[2018-09-23] MEDS: INSULIN REGULAR, HUMAN 100 UNIT/1 ML 3ML VIAL SQ SCH ×4 (09:58→21:00)
[2018-09-23] MEDS: TOUJEO SC SCH (12:29)
--- NOTE | 2018-09-23 16:02 | NUR ---
SPOKE WITH DAUGHTER ABOUT SNF REFERRAL, SHE STATES HE WILL HAVE SURGERY TOMORROW AND LOOK AT FACILITIES TONIGHT TO GIVE CHOICE TOMORROW.
--- NOTE | 2018-09-23 22:05 | NUR ---
CONSENT THAT WAS GIVEN TO PATIENT, THE PATIENT'S SPOUSE VERBALIZED UNDERSTANDING OF CONSENT AND PROCEDURE SHE SIGNED, PATIENT'S SPOUSE IS AWARE OF NPO AFTER MIDNIGHT, PATIENT RESTING COMFORTABLY, CALL LIGHT, WITHIN REACH, WILL CONTINUE TO MONITOR.
[2018-09-23] MEDS: DONEPEZIL HCL 5 MG TAB PO SCH (22:08)
[2018-09-24] VITALS: BP 121/58
[2018-09-24] MEDS ORDERED: SODIUM CHLORIDE 0.9% 1000ML 1,000 ML IV SCH
[2018-09-24] MEDS: HYDROMORPHONE 2MG/ML 2 MG/ML ML IV PRN ×3 (01:00→18:50)
--- NOTE | 2018-09-24 03:25 | NUR ---
WALKING ROUNDS MADE, PATIENT OBSERVED SLEEPING WITH NO RESPIRATORY DISTRESS, IV FLUIDS INFUSING ORDERED, CALL LIGHT WITHIN EASY REACH.
[2018-09-24 04:00] VITALS: BP 136/56
[2018-09-24] MEDS: INSULIN REGULAR, HUMAN 100 UNIT/1 ML 3ML VIAL SQ SCH ×4 (07:30→21:39)
[2018-09-24 08:49] VITALS: BP 166/71
[2018-09-24] MEDS: GABAPENTIN 300 MG CAP PO SCH ×2 (09:00→17:00)
[2018-09-24] MEDS: TAMSULOSIN HCL 0.4 MG CAP PO SCH (09:00)
[2018-09-24] MEDS: TOUJEO SC SCH ×2 (09:00→22:18)
[2018-09-24] MEDS: DIGOXIN 0.125 MG TAB PO SCH (09:00)
[2018-09-24] MEDS: FERROUS SULFATE 325 MG TAB PO SCH (09:00)
[2018-09-24] MEDS: GLIPIZIDE 5 MG TAB PO SCH ×2 (09:00→21:54)
[2018-09-24] MEDS: FUROSEMIDE 40 MG TAB PO SCH ×2 (09:00→17:00)
[2018-09-24] MEDS: POTASSIUM CHLORIDE 10MEQ EA PO SCH (09:00)
[2018-09-24 09:09] VITALS: BP 166/71
[2018-09-24] MEDS: LOSARTAN POTASSIUM 25 MG TAB PO SCH (09:09)
[2018-09-24] MEDS: VERAPAMIL HCL 80 MG TAB PO SCH ×3 (09:09→21:54)
[2018-09-24 12:30] VITALS: BP 170/75
[2018-09-24] MEDS ORDERED: BACITRACIN 50,000 UNIT VIAL ONE (13:21)
--- NOTE | 2018-09-24 13:45 | NUR ---
Patient taken to OR at this time.
[2018-09-24] MEDS ORDERED: CEFAZOLIN SOD 1 GM VIAL IV ONE (14:00)
[2018-09-24] MEDS ORDERED: CEFAZOLIN SOD 2 GM/D5W 50ML 50 ML IV ONE (14:00)
[2018-09-24] MEDS: SODIUM CHLORIDE 0.9% 1000ML 1,000 ML IV SCH (16:31)
[2018-09-24] MEDS ORDERED: ONDANSETRON HCL INJ 2MG/ML 2ML 2 MG/ML VIAL IV PRN (16:45)
[2018-09-24] MEDS ORDERED: HYDROCODONE/APAP 5MG-325MG TAB PO PRN (16:45)
[2018-09-24] MEDS ORDERED: FENTANYL CITRATE/PF 100MCG/2 ML INJ ONE ×2 (17:30→19:18)
--- NOTE | 2018-09-24 17:59 | Diagnostic Imaging Report ---
PELVIS AP 1-2 VIEWS HISTORY: Left displaced tumor. Left hip replacement. COMPARISON: . FINDINGS: Status post total left hip arthroplasty with bipolar prosthesis in adequate position. Postoperative soft tissue swelling. Overlying artifact. Mild degenerative changes of the bilateral SI and right hip joints. IMPRESSION: Status post total left hip arthroplasty with bipolar prosthesis in adequate position. Signed by: Dr. Mina Martinez M.D. on 09/24/2018 5:56 PM
--- NOTE | 2018-09-24 18:20 | Diagnostic Imaging Report ---
HIP LEFT 2-3 VW (+/- PELVIS) HISTORY: Left hip replacement. COMPARISON: 09/24/2018. FINDINGS: Status post total left hip arthroplasty with prosthesis in adequate position. Postoperative soft tissue swelling and gas. Multiple surgical skin ozzie. Mild degenerative changes of the bilateral SI and right hip joints. James catheter is noted. IMPRESSION: Status post total left hip arthroplasty with prosthesis in adequate position. Signed by: Dr. Mina Martinez M.D. on 09/24/2018 6:17 PM
[2018-09-24 20:00] VITALS: BP 181/76
[2018-09-24] MEDS: CEFAZOLIN SOD 1 GM/NS 50ML 50 ML IV SCH (21:53)
[2018-09-24] MEDS: DONEPEZIL HCL 5 MG TAB PO SCH (21:53)
[2018-09-25] VITALS (7 sets, daily range): BP systolic 131–183; BP diastolic 64–81
[2018-09-25] MEDS: SODIUM CHLORIDE 0.9% 1000ML 1,000 ML IV SCH ×3 (00:34→21:00)
[2018-09-25] MEDS: HYDROMORPHONE 2MG/ML 2 MG/ML ML IV PRN (03:35)
--- NOTE | 2018-09-25 03:35 | NUR ---
The patient removed the Tele from his chest and picked off on the dressing of the left hip. RN and sonya put patient back on Tele and instructed patient to leave the Tele on chest. Patient is presented with dementia which may pull Tele again.
[2018-09-25] MEDS: CEFAZOLIN SOD 1 GM/NS 50ML 50 ML IV SCH ×2 (04:55→14:00)
[2018-09-25 05:41] LABS: HEMATOCRIT 30.5 % (38.2-49.6); HEMOGLOBIN 10.1 g/dL (14.0-18.0)
[2018-09-25] MEDS ORDERED: RIVAROXABAN 10 MG TABLET PO SCH (08:00)
[2018-09-25] MEDS: LOSARTAN POTASSIUM 25 MG TAB PO SCH (10:52)
[2018-09-25] MEDS: VERAPAMIL HCL 80 MG TAB PO SCH ×3 (10:52→23:05)
[2018-09-25] MEDS: FERROUS SULFATE 325 MG TAB PO SCH (10:52)
[2018-09-25] MEDS: GABAPENTIN 300 MG CAP PO SCH ×2 (10:53→17:00)
[2018-09-25] MEDS: TAMSULOSIN HCL 0.4 MG CAP PO SCH (10:53)
[2018-09-25] MEDS: GLIPIZIDE 5 MG TAB PO SCH ×2 (10:53→23:05)
[2018-09-25] MEDS: DIGOXIN 0.125 MG TAB PO SCH (10:53)
[2018-09-25] MEDS: POTASSIUM CHLORIDE 10MEQ EA PO SCH (10:53)
[2018-09-25] MEDS: FUROSEMIDE 40 MG TAB PO SCH ×2 (10:53→17:00)
[2018-09-25] MEDS: INSULIN REGULAR, HUMAN 100 UNIT/1 ML 3ML VIAL SQ SCH ×4 (11:41→21:00)
--- NOTE | 2018-09-25 13:56 | NUR ---
REPORT GIVEN TO TONY FROST, FOR PT CONTINUED CARE.
[2018-09-25] MEDS ORDERED: EPHEDRINE SULFATE INJ 50 MG/10 ML SYR ONE (14:28)
[2018-09-25] MEDS ORDERED: ACETAMINOPHEN 1000 MG/100 ML IV ONE (14:28)
[2018-09-25] MEDS ORDERED: ROCURONIUM BROMIDE 10 MG/ML 5ML VIAL ONE (14:28)
[2018-09-25] MEDS ORDERED: LIDOCAINE HCL 2% LOCAL INJ 5 ML SDV VIAL INJ ONE (14:28)
[2018-09-25] MEDS ORDERED: SEVOFLURANE INHAL SOLN 250 ML PEN BTL ONE (14:28)
[2018-09-25] MEDS ORDERED: NEOSTIGMINE 5 MG/5ML SYR ONE (14:28)
[2018-09-25] MEDS ORDERED: PROPOFOL IV EMULSION 10 MG/ML 20 ML VIAL ONE (14:28)
[2018-09-25] MEDS ORDERED: ONDANSETRON HCL INJ 2MG/ML 2ML 2 MG/ML VIAL ONE (14:28)
[2018-09-25] MEDS ORDERED: GLYCOPYRROLATE INJ 1MG/ 5 ML SYR ONE (14:28)
--- NOTE | 2018-09-25 14:42 | NUR ---
WOUND CARE PUP SCREEN Aravind Score: 14 PUP: Strict LOS: 4 days Age: 88 Rotational Air Mattress with turning schedule programmed HOB = 30 Degrees Heel Protectors in place Patient Position: Left & Repositioned to back @ 1200 PATIENT VISIT / SKIN CHECK: No Pressure Ulcers Identified. DX Left Displaced Hip. RECOMMENDATION: - Continue Strict PUP Addendum: 09/25/18 at 1447 by Pineda Damon RN Amended: Links added.
[2018-09-25] MEDS ORDERED: CEFAZOLIN SOD 1 GM/NS 50ML 50 ML IV SCH (15:45)
--- NOTE | 2018-09-25 19:16 | Operative Report ---
DATE OF PROCEDURE: 09/24/2018 SURGEON: Les Shepard MD PREOPERATIVE DIAGNOSIS: Displaced left femoral neck fracture. POSTOPERATIVE DIAGNOSIS: Displaced left femoral neck fracture. OPERATIONS AND PROCEDURE PERFORMED: The patient underwent a left cemented hemiarthroplasty with the Jeri LDFx system, a size 12 stem, a size 51 mm head and a +[address] COUNSELLOR: Ryanne Norman. ANESTHESIA: General endotracheal intubation anesthesia. IV FLUIDS: As per anesthesia record. BLOOD LOSS: Approximately 100 mL. COMPLICATIONS: None. BRIEF DISCUSSION OF THE PATIENT'S OPERATIVE PROCEDURE: Mr. Valdovinos was taken to the operating room, placed in supine position on the operating table. Following induction of general anesthesia as well as endotracheal intubation, the patient was turned to the lateral position and held in place with well-padded hip positioners. An axillary roll was placed in the right chest wall. His bilateral lower extremities were also well padded at this time. The patient's thigh and flank were prepped and draped in the standard surgical fashion. Standard posterolateral partial thickness undertaken. A curvilinear incision centered over the greater trochanter was carried through the skin and subcutaneous tissues to the level of the tensor fascia mitch and gluteus judd fascia. The tensor fascia mitch and gluteus judd fascia were then incised in line with the skin incision. A Charnley retractor was carefully placed in the wound and the sciatic nerve was identified and protected throughout the remainder of the case. The short external rotators were elevated from the posterior and lateral aspect of the femur and reflected posteriorly over the sciatic nerve to protect it throughout the remainder of the case. This revealed a displaced femoral neck fracture. A femoral neck cut was carefully performed. The head was removed from the acetabulum and measured and passed to the back table. Sequential broaching was undertaken until an appropriate size broach was placed within the proximal femur. Head was affixed to the broach and the hip was reduced and placed through motion and found to be stable. Trial components were removed. The canal was prepared for cementation. Cement was inserted and pressurized. The stem was then inserted, taking care to provide the patient the appropriate amount of anteversion. Once the cement had cured, the hip was again reduced and placed in range of motion and found to be stable. The wound was copiously irrigated. The wound was closed in a multilayer fashion. Sterile dressings were applied as well as an abduction pillow and the patient was then awakened and taken to postanesthesia care unit in a stable condition. Ryanne Osullivan acted as assistant softball coach for this case and was necessary for both prepping and draping the patient as well as positioning of the leg during the procedure and retraction of soft tissue that allowed this case to be successful. MD AMINAH De Leon/SHIVA /[id number]
[2018-09-25] MEDS: DONEPEZIL HCL 5 MG TAB PO SCH (23:05)
[2018-09-25] MEDS: TOUJEO SC SCH (23:05)
--- NOTE | 2018-09-25 23:10 | NUR ---
The patient was difficult to arouse to take the PO medications. Several times the patient's chest was rubbed and patient was finally able to follow command to take the pills and sip down the water. Patient's was at bedside and is aware during the day the patient has refused to drink or eat. Continue to monitor the patient's VS and blood glucose.
[2018-09-26] VITALS: BP 169/70
[2018-09-26 04:00] VITALS: BP 144/72
[2018-09-26] MEDS ORDERED: KETOROLAC TROMETHAMINE 30 MG/ML VIAL IV PRN (04:45)
[2018-09-26 05:58] LABS: HEMATOCRIT 27.8 % (38.2-49.6); HEMOGLOBIN 9.1 g/dL (14.0-18.0)
--- NOTE | 2018-09-26 07:32 | NUR ---
RECEIVED PATIENT RESTING IN BED, NO SIGNS OF DISTRESS AT THIS TIME. BED LOW, WHEELS LOCKED, SIDE RAILS X2, CALL LIGHT IN REACH. WILL CONTINUE TO MONITOR.
[2018-09-26 07:56] VITALS: BP 171/72
--- NOTE | 2018-09-26 09:15 | NUR ---
PATIENT A/O X1, EVEN RESPIRATIONS ON 3LNC. BOWEL SOUNDS ACTIVE, PATE IN PLACE WITH DARK YELLOW URINE. FOOT PUMPS IN PLACE BILATERALLY. LEFT AC 20 GAUGE IV WITH NS @ 50 CC/HR. WEIGHT BEARING TOLERATED. TELE #14 RUNNING AFIB. CALL LIGHT IN REACH, BED LOW, WHEELS LOCKED, SIDE RAILS X2. FAMILY AT BEDSIDE. WILL CONTINUE TO MONITOR PATIENT.
--- NOTE | 2018-09-26 09:30 | NUR ---
REMOVED PATIENTS PATE CATHETER. CATHETER TIP INTACT ON REMOVAL.
[2018-09-26] MEDS: LOSARTAN POTASSIUM 25 MG TAB PO SCH (09:36)
[2018-09-26] MEDS: FERROUS SULFATE 325 MG TAB PO SCH (09:36)
[2018-09-26] MEDS: TAMSULOSIN HCL 0.4 MG CAP PO SCH (09:36)
[2018-09-26] MEDS: VERAPAMIL HCL 80 MG TAB PO SCH ×2 (09:36→15:41)
[2018-09-26] MEDS: GLIPIZIDE 5 MG TAB PO SCH (09:36)
[2018-09-26] MEDS: GABAPENTIN 300 MG CAP PO SCH ×2 (09:37→17:01)
[2018-09-26] MEDS: POTASSIUM CHLORIDE 10MEQ EA PO SCH (09:37)
[2018-09-26] MEDS: FUROSEMIDE 40 MG TAB PO SCH ×2 (09:37→17:01)
[2018-09-26] MEDS: DIGOXIN 0.125 MG TAB PO SCH (09:37)
[2018-09-26] MEDS: INSULIN REGULAR, HUMAN 100 UNIT/1 ML 3ML VIAL SQ SCH ×3 (09:47→17:01)
[2018-09-26 11:05] VITALS: BP 171/72
[2018-09-26 12:23] VITALS: BP 168/69
--- NOTE | 2018-09-26 13:42 | NUR ---
DRESSING CHANGE PERFORMED AT THIS TIME.
--- NOTE | 2018-09-26 13:43 | NUR ---
SPOKE WITH JAMIE, PT ACCEPTED TO ROOM 135 DR ANJEL LOW. RTF COMPLETED AND GIVEN TO NURSE.
[2018-09-26] MEDS: SODIUM CHLORIDE 0.9% 1000ML 1,000 ML IV SCH (14:33)
--- NOTE | 2018-09-26 15:45 | NUR ---
REPORT CALLED TO NURSE SAMANO AT [facility] AT THIS TIME.
--- NOTE | 2018-09-26 16:01 | NUR ---
PATIENT HAS NOT VOIDED SINCE 929 PATE REMOVAL. SCANNED PATIENTS BLADDER, HIGHEST NUMBER 206 ML. RESCANNED PATIENT AND KEPT GETTING BETWEEN [phone] ML.
[2018-09-26 16:45] VITALS: BP 152/68
[2018-09-26] MEDS ORDERED: RIVAROXABAN 20 MG TABLET PO SCH (17:00)
--- NOTE | 2018-09-26 17:04 | NUR ---
REMOVED LEFT AC IV. CATHETER TIP INTACT AND PRESSURE DRESSING APPLIED.
[2018-09-26] MEDS ORDERED: HYDROCODONE/APAP 5MG-325MG TAB PO ONE (17:30)
--- NOTE | 2018-09-26 18:02 | NUR ---
PATIENT DISCHARGED AT THIS TIME. PATIENT LEAVING IN AMBULANCE TO COURTYARDS. FAMILY GATHERED ALL PERSONAL BELONGINGS, PRESCRIPTIONS, AND FOLLOW UP INFORMATION. NO SIGNS OF DISTRESS WHEN LEAVING FACILITY.
--- NOTE | 2018-09-27 05:16 | Discharge Summary ---
HOSPITAL COURSE: The patient is an 88-year-old male, who had a past medical history positive for chronic atrial fibrillation. He had a fall. He had a left femoral neck fracture. He had a left femoral fracture repair. He is going to go back to a shelter. He has also history of congestive heart failure, hypertension, and elevated LFTs. PHYSICAL EXAMINATION: VITAL SIGNS: Blood pressure 168/69, temperature 36.0, heart rate 68 per minute, respiratory rate 18 per minute, and oxygen saturation 94%. HEART: Showed irregularly irregular heart rate. Normal S1, S2 sounds. LUNGS: Clear bilaterally. ABDOMEN: Soft. LABORATORY DATA: BMP; sodium 141, potassium 3.8, chloride 102, CO2 of 32, BUN 16, creatinine 0.84, glucose 141. On CBC; white blood count 8.79, hemoglobin 9.1, hematocrit 27.8, platelet count 140,000. PT 16.3, INR 1.25, PTT 37.1. AST 42, ALT 65, total bilirubin 1.6, and alkaline phosphatase 77. IMPRESSION: 1. Left hip fracture repair. 2. Chronic atrial fibrillation. 3. Diabetes mellitus type 2. 4. Essential hypertension, benign. 5. Benign prostatic hypertrophy. PLAN OF TREATMENT: We are going to continue digoxin 0.125 mg daily, glipizide 5 mg at bedtime, 10 mg in the morning, Xarelto, he is taking 10 mg daily, which is recommended by Dr. Rosario, Cardiology. Continue Aricept 10 mg daily, potassium chloride 10 mEq daily, losartan 25 mg daily. He is also on furosemide 40 mg twice a day. He is on Flomax 0.4 mg daily, ferrous sulfate 325 mg daily, Toradol 50 mg q.6 hours, gabapentin 300 mg twice a day, verapamil 80 mg three times a day, and also Zofran 4 mg q.6 hours. The patient is going to be on Xarelto and I am going to switch him to 20 mg daily, which is a more appropriate dose because the patient had a history of atrial fibrillation. He will be DNR. MD JEANETH Broderick/SHIVA /[id number]
== END 2018-09-26 18:02 | disposition other institution (70) | DRG 470 ==
LOC: ER 16:40 → ERHOLD 20:02 → MED/SURG 21:33
PROC: 0SRS0J9 Replacement of Left Hip Joint, Femoral Surface with Synthetic Substitute, Cemented, Open Approach (ICD-10-PCS; principal; 2018-09-24 12:00)
DX: S72.002A Fracture of unspecified part of neck of left femur, initial encounter for closed fracture (principal); W19.XXXA Unspecified fall, initial encounter; F03.90 Unspecified dementia, unspecified severity, without behavioral disturbance, psychotic disturbance, mood disturbance, and anxiety; I48.2 Chronic atrial fibrillation; Z79.01 Long term (current) use of anticoagulants; D64.9 Anemia, unspecified; G47.30 Sleep apnea, unspecified; Z95.0 Presence of cardiac pacemaker
CPT/HCPCS: 36415; 51700; 70450; 71045; 72125; 72170; 73523; 80053; 81001; 82550; 82948; 83880; 84484; 85014; 85018; 85025; 85610; 85730; 86850; 86900; 86920; 88305; 93005; 96372; 96374; 96376; 97139; 99284; C1713; C1776; J0690; J1885; J2001; J2405; J7030